=== PATIENT | female | born 1960 | race Caucasian/White ===

== ENCOUNTER → 2023-12-18 10:39 | Outpatient (REF) | payer OTHER, SELFPAY | LOC: HWRAD 10:39 | PROVIDERS: ATTENDING PHYSICIAN Obstetrics & Gynecology; FAMILY PHYSICIAN Physician Assistant Medical | DX: Z78.0 Asymptomatic menopausal state (principal); Z12.31 Encounter for screening mammogram for malignant neoplasm of breast | CPT/HCPCS: 77063; 77067; 77080 ==

== ENCOUNTER → 2024-07-16 09:57 | Outpatient (REF) | payer OTHER, SELFPAY | LOC: RAD 09:57 | PROVIDERS: ATTENDING PHYSICIAN Internal Medicine Gastroenterology; FAMILY PHYSICIAN Physician Assistant Medical | DX: R10.11 Right upper quadrant pain (principal) | CPT/HCPCS: 76700 ==

== ENCOUNTER → 2024-10-23 09:30 | Outpatient (REF) | payer OTHER, SELFPAY | LOC: HWRAD 09:30 | PROVIDERS: ATTENDING PHYSICIAN Physician Assistant Medical | DX: R91.1 Solitary pulmonary nodule (principal) | CPT/HCPCS: 71250 ==

== ENCOUNTER → 2025-06-30 07:10 | Outpatient (REF) | payer OTHER, SELFPAY | LOC: HWRAD 07:10 | PROVIDERS: ATTENDING PHYSICIAN Internal Medicine Gastroenterology; FAMILY PHYSICIAN Physician Assistant Medical | DX: R10.11 Right upper quadrant pain (principal) | CPT/HCPCS: 76700 ==